=== PATIENT | male | born 1950 | race Caucasian/White ===

== ENCOUNTER 2022-03-07 16:43 | Inpatient (IN) | payer MEDICARE, MEDICAID, SELFPAY ==
[2022-03-07 17:25] VITALS: BP 118/72; PULSE 78; RESP 18; TEMP 36.1; O2SAT 95
[2022-03-07 17:34] VITALS: BMI 32.3
--- NOTE | 2022-03-07 17:43 | ADMGEN ---
0780 This patient, Yann Anna, was admitted from [facility] in [place] to 2nd Floor Room 209-1 for rehab following l total knee replacement. Patient/family oriented to hospital policies and general routines including ID bracelet, bed and alarms, visiting hours, pain management, procedures, bathroom and other care routines, personal items, smoking policy, room service/diet, and visiting hours. Information on how to activate the Rapid Response Team has been discussed. Patient/Family are encouraged to report perceived risks to care and to ask questions if they do not understand what they are told or what they should do.
--- NOTE | 2022-03-07 19:50 | PC.NURSE ---
report received for patient from mitzi @ [facility]. claims that the drg to l knee to be left in place til saturday and then is to left open to air. claims there are ethan in place. claims the incision was clean and dry. paperwork with instructions of how to use the peco-mini wound vac and is in place on arrival and green light flashes. brothjulio césar, dinesh and jaziel at bedside. brother dinesh is very rude with staff, keeps making comments that he bets we will not do as we tell him. examples not put phone numbers in computer or pass on to staff that patient can not read and nobody in the morning shift will no any of this and how to get a hold of brothers. makes rude comments constantly at nurses about how care probably not be right. questions why brother was served turkey for supper and is on menu for the next day also, he's not on a special diet and this should not be happening. tried to explain and kitchen talked with him. patient has little words and brother speaks for him.
[2022-03-07] MEDS: ATORVASTATIN 40 MG TABLET PO (20:46)
[2022-03-07] MEDS: HYDROcodone/acetaminophen (*CRX) 5-325 MG TABLET 1 TAB PO (20:50)
[2022-03-08] VITALS: BP 131/87; PULSE 88; RESP 20; TEMP 36.2; O2SAT 96
[2022-03-08] MEDS: ASPIRIN 81 MG ENTERIC TABLET PO ×2 (07:14→17:30)
[2022-03-08] MEDS: HYDROcodone/acetaminophen (*CRX) 5-325 MG TABLET 2 TAB PO ×2 (07:15→20:32)
[2022-03-08 08:00] VITALS: BP 128/66; PULSE 80; RESP 16; TEMP 36.4; O2SAT 94
--- NOTE | 2022-03-08 08:00 | PC.NURSE ---
Dick dressing in place with no drainage noted in tubing. Reddened area noted on medial side of dressing up towards groin area. Reddened area feels warm to touch and appears to be very swollen. This is the first assessment completed by this author, so no comparison can be noted. Discussed this finding with CHRISTI Colón, will continue to monitor.
--- NOTE | 2022-03-08 10:05 | PM.IMHP ---
H&P: HPI History of Present Illness Date/Time: 03/08/22 10:05 This is a 71-year-old male that presents to the swing bed due to left knee replacement patient had a left total knee Arthroplasty. Patient has a past medical history of high cholesterol patient used tobacco in the past. Patient has a jasson dressing that will remain on until Saturday he remains on aspirin as the DVT prophylactic Dr. Smith performed procedure prior to arrival I noticed white blood count was elevated discussed with [facility] who said that they discussed with Dr. Smith who did not feel patient needed antibiotics. Patient has arrived and will follow up with physical therapy we will continue to monitor the site dressing will be removed on Saturday and remain open to air at this Chief Complaint: OrS/p scoring Left knee Arthroplasty , Weakness, Swing bed Review of Systems Review of Systems: Left knee surgery., left knee pain All systems reviewed & are unremarkable except as noted in HPI and below PMFSH Social History Social History Smoking status: Former smoker Alcohol intake: never Substance use: never Spiritual care concerns: No Comments At time as signature, I have reviewed and agree with nursing past medical, social, surgical and family history. Please see nursing chart for further information. There is no relevant family history pertinent to the presenting complaint. Meds Home Medications and Allergies Home Medications Medication Instructions Recorded Confirmed Type aspirin [Adult Aspirin EC Low 81 mg PO BIDWM 03/07/22 03/07/22 History Strength] atorvastatin 40 mg PO HS 03/07/22 03/07/22 History hydrocodone-acetaminophen [Biggs] 1 tablet PO Q6H PRN 03/07/22 03/07/22 History hydrocodone-acetaminophen [Biggs] 2 tablet PO Q6H PRN 03/07/22 03/07/22 History Allergies Allergy/AdvReac Type Severity Reaction Status Date / Time No Known Drug Allergies Allergy Other Verified 03/07/22 17:24 Vital Signs Vital Signs - 24 hr 03/07/22 17:25 03/08/22 00:00 03/08/22 08:00 Temperature 97 F L 97.2 F L 97.6 F Pulse Rate 78 88 80 Respiratory Rate 18 20 16 Blood Pressure 118/72 131/87 128/66 Pulse Oximetry 95 96 94 Exam Narrative: GENERAL:Well-appearing, well-nourished, and in no acute distress. HEAD:Normocephalic, atraumatic. EYES: PERRLA and EOMI. ENT: Nares clear, no rhinorrhea or epistaxis. Mucous membranes moist. CHEST: Clear to auscultation. No respiratory distress. HEART: Regular rate and rhythm. Normal peripheral pulses. ABDOMEN: Soft, nontender, nondistended, normal active bowel sounds. EXTREMITIES: Normal range of motion. Left knee has 2+ edema with some erythema that streaking up the inner thigh warm to touch. SKIN: Warm, dry, no rash. NEURO: No focal deficits. Alert and oriented x3. Assessment and Plan Assessment and plan (1) S/P left knee arthroscopy: Code(s): Z98.890 - Other specified postprocedural states Status: Acute Assessment and Plan: Dressing dry and intact Jasson drain remove on Saturday and leave open to air follow up with Dr. Smith (2) Hyperlipemia: Code(s): E78.5 - Hyperlipidemia, unspecified Status: Acute Assessment and Plan: Continue home medication (3) Weakness: Code(s): R53.1 - Weakness Status: Acute Assessment and Plan: continue to monitor fall precaution I will goPhysical therapy Ensure that patient has adequate nutrition to work with therapy .
[2022-03-08] MEDS: HYDROcodone/acetaminophen (*CRX) 5-325 MG TABLET 1 TAB PO (13:57)
[2022-03-08 16:00] VITALS: BP 130/74; PULSE 89; RESP 16; TEMP 36.9; O2SAT 94
[2022-03-08] MEDS: ATORVASTATIN 40 MG TABLET PO (20:32)
[2022-03-08 23:06] VITALS: BP 119/72; PULSE 82; RESP 16; TEMP 36.5; O2SAT 94
[2022-03-09 05:07] LABS: Hematocrit 34.8 % (37.0-46.0); Mean Corpuscular HGB Conc 31.6 g/dL (32.0-36.0); Mean Corpuscular Hemoglobin 28.9 pg (27.0-31.0); Mean Corpuscular Volume 91.6 fL (78.0-102.0); Mean Platelet Volume 9.4 fl (8.7-11.0); Platelet Count Result 248 K/mm3 (150-420); Red Cell Distribution Width 12.5 % (11.6-14.4); White Blood Count 10.1 K/mm3 (4.8-10.8)
[2022-03-09 05:17] LABS: Anion Gap 5 mmol/L (8-16); Blood Urea Nitrogen 13 mg/dL (7-18); Calcium 8.6 mg/dL (8.5-10.1); Carbon Dioxide 30 mmol/L (21-32); Chloride 98 mmol/L (98-108); Estimated CRCL calculation 97 ml/min; Estimated Glomerular Filt Rate > 60; Glucose 103 mg/dL (70-99); Osmolality Calculated 276 mOsm/kg (285-295); Potassium 3.9 mmol/L (3.5-5.1); Sodium 133 mmol/L (136-145)
[2022-03-09] MEDS: ASPIRIN 81 MG ENTERIC TABLET PO ×2 (07:39→16:59)
[2022-03-09] MEDS: polyethylene glycoL 3350 17 GM POWD.PACK PO (07:39)
[2022-03-09] MEDS: HYDROcodone/acetaminophen (*CRX) 5-325 MG TABLET 2 TAB PO (07:40)
[2022-03-09 08:00] VITALS: BP 126/76; PULSE 88; RESP 16; TEMP 36.9; O2SAT 95
[2022-03-09 16:00] VITALS: BP 140/78; PULSE 88; RESP 18; TEMP 36.8; O2SAT 95
[2022-03-09] MEDS: HYDROcodone/acetaminophen (*CRX) 5-325 MG TABLET 1 TAB PO (20:59)
[2022-03-09] MEDS: ATORVASTATIN 40 MG TABLET PO (20:59)
[2022-03-09] MEDS: IBUPROFEN 600 MG TABLET PO (23:20)
[2022-03-09 23:41] VITALS: BP 120/73; PULSE 84; RESP 18; TEMP 36.3; O2SAT 96
[2022-03-10 08:00] VITALS: BP 129/78; PULSE 78; RESP 16; TEMP 36.7; O2SAT 94
[2022-03-10] MEDS: ASPIRIN 81 MG ENTERIC TABLET PO ×2 (08:27→17:32)
[2022-03-10] MEDS: polyethylene glycoL 3350 17 GM POWD.PACK PO (08:28)
[2022-03-10] MEDS: BISACODYL 5 MG TABLET EC PO (13:27)
[2022-03-10 16:00] VITALS: BP 114/75; PULSE 89; RESP 16; TEMP 36.9; O2SAT 94
[2022-03-10] MEDS: ATORVASTATIN 40 MG TABLET PO (20:03)
[2022-03-10] MEDS: DOCUSATE SODIUM 100 MG CAPSULE PO (20:03)
[2022-03-10] MEDS: HYDROcodone/acetaminophen (*CRX) 5-325 MG TABLET 1 TAB PO (21:21)
[2022-03-11] VITALS: BP 122/79; PULSE 89; RESP 18; TEMP 36.8; O2SAT 96
[2022-03-11 08:00] VITALS: BP 137/84; PULSE 81; RESP 16; TEMP 36.9; O2SAT 95
[2022-03-11] MEDS: DOCUSATE SODIUM 100 MG CAPSULE PO ×2 (08:14→20:43)
[2022-03-11] MEDS: ASPIRIN 81 MG ENTERIC TABLET PO ×2 (08:14→17:39)
--- NOTE | 2022-03-11 10:05 | PC.NURSE ---
Patient's wound vac removed. Patient tolerated well. Images and measurement of surgical wound in file. No s/s infection. Scant amount of active bleeding around 2 ethan.
[2022-03-11] MEDS: HYDROcodone/acetaminophen (*CRX) 5-325 MG TABLET 1 TAB PO ×2 (10:59→20:47)
[2022-03-11 16:00] VITALS: BP 139/81; PULSE 86; RESP 18; TEMP 36.9; O2SAT 91
[2022-03-11] MEDS: ATORVASTATIN 40 MG TABLET PO (20:44)
[2022-03-11] MEDS: traZODone HCL 50 MG TABLET PO (20:48)
[2022-03-12] VITALS: BP 117/75; PULSE 101; RESP 18; TEMP 36.6; O2SAT 92
[2022-03-12 08:00] VITALS: BP 116/75; PULSE 97; RESP 16; TEMP 36.7; O2SAT 91
[2022-03-12] MEDS: ASPIRIN 81 MG ENTERIC TABLET PO ×2 (08:46→17:23)
[2022-03-12] MEDS: DOCUSATE SODIUM 100 MG CAPSULE PO ×2 (08:46→20:22)
[2022-03-12] MEDS: polyethylene glycoL 3350 17 GM POWD.PACK PO (08:46)
[2022-03-12] MEDS: ONDANSETRON HCL ODT 4 MG TABLET PO (13:10)
[2022-03-12 16:00] VITALS: BP 111/75; PULSE 100; RESP 16; TEMP 36.8; O2SAT 94
[2022-03-12] MEDS: ATORVASTATIN 40 MG TABLET PO (20:22)
[2022-03-12] MEDS: HYDROcodone/acetaminophen (*CRX) 5-325 MG TABLET 2 TAB PO (20:23)
[2022-03-12] MEDS: IBUPROFEN 600 MG TABLET PO (21:52)
[2022-03-12 23:09] VITALS: BP 114/79; PULSE 92; RESP 20; TEMP 36.6; O2SAT 92
[2022-03-13] VITALS: BP 101/76; PULSE 80; RESP 16; TEMP 36.9; O2SAT 92
[2022-03-13 07:56] VITALS: BP 121/75; PULSE 77; RESP 16; TEMP 36.1; O2SAT 97
[2022-03-13] MEDS: ASPIRIN 81 MG ENTERIC TABLET PO ×2 (08:45→17:13)
[2022-03-13] MEDS: polyethylene glycoL 3350 17 GM POWD.PACK PO (08:45)
[2022-03-13] MEDS: DOCUSATE SODIUM 100 MG CAPSULE PO ×2 (08:45→20:20)
[2022-03-13] MEDS: ONDANSETRON HCL ODT 4 MG TABLET PO (08:45)
[2022-03-13 16:00] VITALS: BP 110/70; PULSE 77; RESP 16; TEMP 36.6; O2SAT 95
--- NOTE | 2022-03-13 16:19 | PM.EVENT ---
Event Note Event Note Event Note: Mr Anna is in need of a 2 wheeled walker as she has a significant impaired mobility d/t Left total knee requiring a walker to safely do ADL at home . This is necessary to reduce risk of injury with performing ADL at home. Mr Anna is Alert and able to safely use walker to resolve this mobility deficit
[2022-03-13] MEDS: ATORVASTATIN 40 MG TABLET PO (20:20)
[2022-03-13] MEDS: HYDROcodone/acetaminophen (*CRX) 5-325 MG TABLET 2 TAB PO (22:51)
[2022-03-14] VITALS: BP 113/72; PULSE 96; RESP 18; TEMP 36.8; O2SAT 94
[2022-03-14 08:00] VITALS: BP 112/71; PULSE 82; RESP 16; TEMP 36.7; O2SAT 98
[2022-03-14] MEDS: DOCUSATE SODIUM 100 MG CAPSULE PO ×2 (08:37→20:16)
[2022-03-14] MEDS: polyethylene glycoL 3350 17 GM POWD.PACK PO (08:38)
[2022-03-14] MEDS: ASPIRIN 81 MG ENTERIC TABLET PO ×2 (08:38→17:02)
[2022-03-14] MEDS: HYDROcodone/acetaminophen (*CRX) 5-325 MG TABLET 1 TAB PO (11:37)
[2022-03-14 16:00] VITALS: BP 120/81; PULSE 79; RESP 17; TEMP 36.3; O2SAT 97
[2022-03-14] MEDS: HYDROcodone/acetaminophen (*CRX) 5-325 MG TABLET 2 TAB PO (20:15)
[2022-03-14] MEDS: ATORVASTATIN 40 MG TABLET PO (20:15)
[2022-03-15] VITALS: BP 135/84; PULSE 92; RESP 20; TEMP 36.6; O2SAT 95
[2022-03-15 08:00] VITALS: BP 116/78; PULSE 85; RESP 18; TEMP 36.9; O2SAT 94
[2022-03-15] MEDS: ASPIRIN 81 MG ENTERIC TABLET PO ×2 (08:01→17:26)
[2022-03-15] MEDS: DOCUSATE SODIUM 100 MG CAPSULE PO ×2 (08:01→21:20)
[2022-03-15 16:00] VITALS: BP 122/70; PULSE 94; RESP 18; TEMP 36.6; O2SAT 99
[2022-03-15] MEDS: HYDROcodone/acetaminophen (*CRX) 5-325 MG TABLET 1 TAB PO (19:46)
[2022-03-15] MEDS: ATORVASTATIN 40 MG TABLET PO (21:19)
[2022-03-15 23:52] VITALS: BP 121/74; PULSE 84; RESP 20; TEMP 36.4; O2SAT 94
[2022-03-16] MEDS: ASPIRIN 81 MG ENTERIC TABLET PO (07:43)
[2022-03-16] MEDS: ACETAMINOPHEN 325 MG TABLET 650 MG PO (07:44)
[2022-03-16] MEDS: DOCUSATE SODIUM 100 MG CAPSULE PO (07:45)
[2022-03-16 08:00] VITALS: BP 112/79; PULSE 83; RESP 18; TEMP 36.6; O2SAT 94
--- NOTE | 2022-03-16 09:55 | PM.DS ---
DS: Admitting Diagnosis Discharge Date 03/16/2022 Admitting Diagnosis Rehab, weakness DS: Discharge Diagnosis Discharge Diagnosis (1) S/P left knee arthroscopy: Code(s): Z98.890 - Other specified postprocedural states Status: Acute Assessment and Plan: follow up with Dr. Smith (2) Hyperlipemia: Code(s): E78.5 - Hyperlipidemia, unspecified Status: Acute Assessment and Plan: Continue home medication (3) Weakness: Code(s): R53.1 - Weakness Status: Acute Assessment and Plan: Outpatient PT OT arranged by patient's orthopedic surgeon Dr. Smith DS: Summary Hospital Course Hospital Course: This is a 71-year-old male that presents to the swing bed due to left knee replacement patient had a left total knee Arthroplasty. Patient has a past medical history of high cholesterol patient used tobacco in the past. Patient was discharged home PT OT will be arranged by his orthopedic surgeon Dr. Smith. Patient agrees that he is ready for discharge. Patient is able to ambulate 300 feet with contact-guard assist and FWE Chief Complaint: OrS/p scoring Left knee Arthroplasty , Weakness, Swing bed Time Spent with Patient Time attestation: Total time spent providing and/or coordinating discharge services: Exam Narrative: GENERAL:Well-appearing, well-nourished, and in no acute distress. HEAD:Normocephalic, atraumatic. EYES: PERRLA and EOMI. ENT: Nares clear, no rhinorrhea or epistaxis. Mucous membranes moist. CHEST: Clear to auscultation. No respiratory distress. HEART: Regular rate and rhythm. Normal peripheral pulses. ABDOMEN: Soft, nontender, nondistended, normal active bowel sounds. EXTREMITIES: Normal range of motion. Left knee has 2+ edema with some erythema that streaking up the inner thigh warm to touch. SKIN: Warm, dry, no rash. NEURO: No focal deficits. Alert and oriented x3. Discharge Plan Discharge Attending physician on discharge: Alfonso Pack Discharging Clinician: Anabel Morales Anticipated Discharge Date/Time: 03/16/22 08:45 Patient Disposition: Home, Self-Care Activity: as tolerated Diet: heart healthy Discharge Instructions: Follow up with primary care physician within 1-2 weeks Notify your physician of any sign and symptoms of infection Take medication as prescribed Call your provider or seek immediate medical attention if you experience any difficulty breathing, chest pain, heaviness or tightness, chills or fever over 101 degree, persistent nausea and vomiting Dr. Smith is sending over order for [facility] for you to start outpatient PT. [facility] will call to set up a schedule. Patient Instructions: Antibiotic Form, Hydrocodone/Acetaminophen (By mouth), How to Choose and Use a Walker (GEN), Fall Prevention for Older Adults (DC), Staple Care (DC) Stand Alone Forms: General Discharge Information Follow-up/Referrals: ,Rene Lombardo MD [Non-Staff] - Keep Reg. Scheduled Appt. (Keep appointment on March 22 for staple removal with Dr Smith.) Discharge Medications: New (DME) walker Misc See Rx Instructions .Route Qty: 1 RF: 0 Continued aspirin 81 mg Tablet,Delayed Release (Dr/Ec) 81 mg PO BIDWM RF: 0 hydrocodone-acetaminophen 5-325 mg Tablet 1 tablet PO Q6H PRN (Reason: Pain (Scale Score 4-6)) RF: 0 atorvastatin 40 mg Tablet 40 mg PO HS RF: 0 hydrocodone-acetaminophen 5-325 mg Tablet 2 tablet PO Q6H PRN (Reason: Pain (Scale Score 7-10)) Qty: 15 RF: 0 Date of admission: 03/07/22 16:43 Primary Care Provider: HamzahCapri Admitting Provider: Alfonso Pack Attending physician on admission: Alfonso Pack Condition: Stable
--- NOTE | 2022-03-16 15:15 | PC.NURSE ---
Patient discharged from unit in w/c accompanied by his brothers and automatic typewriter inspector. Discharge instructions read to patient and to his brothers. All voiced understanding. Personal belongings sent home with patient. No devices present at the time of discharge. Patient and family reminded to follow up with all future appointments.
--- NOTE | 2022-03-20 11:19 | PC.NURSE ---
Pt states he received and understood his discharge instructions. Pt has no other comments.
== END 2022-03-16 15:15 | disposition home or self-care (01) | DRG 561 ==
PROVIDERS: Nurse Practitioner Family; Admitting Provider Internal Medicine; PCP Family Medicine; Visit Provider Internal Medicine
DX: Z47.1 Aftercare following joint replacement surgery (principal); Z96.652 Presence of left artificial knee joint; E78.00 Pure hypercholesterolemia, unspecified
CPT/HCPCS: 36415; 80048; 85027; 97110; 97161; 97165; 97530; 97535; A9270